=== PATIENT | female | born 1965 | race Caucasian/White ===

== ENCOUNTER 2017-07-18 23:05 | Emergency (ER) | payer OTHER ==
[~2017-07-18] VITALS: Ht 175.3 cm; Wt 70.0 kg
[2017-07-18 23:27] VITALS: BP 152/68; PULSE 88; RESP 14; TEMP 98.6; O2SAT 99
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
[2017-07-19] MEDS ORDERED: SERO300T PO (03:08)
== END 2017-07-18 23:44 | disposition home or self-care (01) ==
LOC: NEPC 23:05
DX: Z04.1 Encounter for examination and observation following transport accident (principal); G89.29 Other chronic pain; M54.5 Low back pain
CPT/HCPCS: 99283